=== PATIENT | male | born 1995 | race Caucasian/White ===

== ENCOUNTER 2024-06-21 10:43 | Day surgery (SDC) | payer OTHER ==
[~2024-06-21] VITALS: Ht 30.5 cm; Wt 81.8 kg
[~2024-06-21 10:43] MED LIST: LIDOCAINE/PF 2% 5 ML VIAL ONE; LISI-893 PO; PROPOFOL 1% 20 ML VIAL IVP ONE; SODIUM CHLORIDE 0.9% 1,000 ML ONE
[2024-06-21] MEDS: SODIUM CHLORIDE 0.9% 1,000 ML IV ONE (12:20)
[2024-06-21] MEDS ORDERED: OXYGEN THERAPY IH SCH (12:30)
== END 2024-06-21 13:20 | disposition home or self-care (01) ==
LOC: SURGERY 10:43
PROVIDERS: ATTEND Specialist
DX: R10.13 Epigastric pain (principal); K29.70 Gastritis, unspecified, without bleeding; K80.20 Calculus of gallbladder without cholecystitis without obstruction; R94.31 Abnormal electrocardiogram [ECG] [EKG]; I44.7 Left bundle-branch block, unspecified; I10 Essential (primary) hypertension; Z79.4 Long term (current) use of insulin; Z79.899 Other long term (current) drug therapy
CPT/HCPCS: 43239; 93005; 88305; 88312; 88313; C1769; J2704; J3490; J7030